=== PATIENT | male | born 1995 | race Caucasian/White ===

== ENCOUNTER 2017-03-13 11:42 | Emergency (ER) | payer OTHER ==
[~2017-03-13] VITALS: Ht 175.3 cm; Wt 75.0 kg
[2017-03-13] MEDS ORDERED: ALBU6.7H IH (11:54)
[2017-03-13] MEDS: SODIUM CHLORIDE 0.9% 1,000 ML IV ONE ×2 (19:36→20:33)
[2017-03-13 19:39] LABS: HEMATOCRIT. 49.7 % (42.0-52.0); HEMOGLOBIN. 17.1 g/dL (14.0-18.0); MEAN CORPUSCULAR HEMOGLOBIN 30.1 pg (28.0-32.0); MEAN CORPUSCULAR VOLUME 87.6 fL (80.0-94.0); MEAN PLATELET VOLUME 8.4 fl (7.4-10.4); PLATELET 181 x1000/uL (130-400); RED BLOOD CELL COUNT 5.67 mill/uL (4.7-6.1); RED CELL DISTRIBUTION WIDTH 13.6 % (11.6-14.6)
[2017-03-13 19:42] LABS: CHLORIDE 106 mEq/L (98-107)
[2017-03-13] MEDS: ONDANSETRON HCL 4MG/2ML VIAL IV ONE ×2 (19:49→21:52)
[2017-03-13 19:50] LABS: CARBON DIOXIDE 22 mEq/L (21-32)
[2017-03-13 20:00] LABS: PLATELET ESTIMATE NORMAL
[2017-03-13] MEDS: KETOROLAC 15MG/ML VIAL IV ONE (21:11)
[2017-03-13] MEDS: ACETAMINOPHEN 500MG TABLET PO ONE (21:12)
[2017-03-13 21:35] LABS: CLARITY URINE CLEAR (CLEAR); COLOR URINE YELLOW (YELLOW); KETONES URINE 2+ (NEGATIVE); LEUKOCYTE ESTERASE URINE NEGATIVE (NEGATIVE); NITRITE URINE NEGATIVE (NEGATIVE); OCCULT BLOOD URINE NEGATIVE (NEGATIVE); PROTEIN URINE NEGATIVE (NEGATIVE); SPECIFIC GRAVITY URINE 1.026 (1.005-1.030); UROBILINOGEN URINE 0.2 E.U./dL (0.2-1.0)
[2017-03-13] MEDS: PANTOPRAZOLE SODIUM 40 MG/VIAL IV ONE (21:52)
[2017-03-13 22:46] VITALS: BP 134/66
[2017-03-13] MEDS: LOPERAMIDE 2 MG/10 ML UDC PO ONE (23:18)
== END 2017-03-13 22:52 | disposition home or self-care (01) ==
LOC: ER 12:10
DX: R11.10 Vomiting, unspecified (principal); R19.7 Diarrhea, unspecified; J45.909 Unspecified asthma, uncomplicated
CPT/HCPCS: 36415; 80053; 81003; 85025; 87804; 96374; 96375; 96376; 99284; C9113; J1885; J2405; J7030